=== PATIENT | female | born 1985 | race Caucasian/White ===

== ENCOUNTER 2017-02-13 16:25 | Emergency (ER) | payer OTHER ==
[~2017-02-13] VITALS: Ht 160 cm; Wt 68.2 kg
[2017-02-13 16:27] VITALS: BP 122/81; PULSE 73; RESP 20; O2SAT 100
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
[2017-02-13] MEDS ORDERED: PNV1TABL81 PO (16:50)
[2017-02-13 17:49] LABS: Mean Corpuscular Hemoglobin 29.4 pg (27.0-35.0); Mean Corpuscular Volume 85.3 fL (81-100)
[2017-02-13 18:28] VITALS: BP 103/67; PULSE 70; RESP 16; O2SAT 98
[2017-02-13 18:39] LABS: APPEARANCE,URINE CLEAR (CLEAR,HAZY); COLOR,URINE YELLOW (YELLOW); OCCULT BLOOD,URINE NEGATIVE (NEGATIVE); PH,URINE 5.5 (5.0-8.0); UROBILINOGEN,URINE NORMAL (NORMAL)
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
== END 2017-02-13 18:29 | disposition home or self-care (01) ==
LOC: SED 16:25
DX: O99.89 Other specified diseases and conditions complicating pregnancy, childbirth and the puerperium (principal); R10.9 Unspecified abdominal pain; V49.50XA Passenger injured in collision with unspecified motor vehicles in traffic accident, initial encounter; Y93.89 Activity, other specified; Y99.8 Other external cause status; Y92.410 Unspecified street and highway as the place of occurrence of the external cause; Z3A.17 17 weeks gestation of pregnancy